=== PATIENT | female | born 1960 | race Caucasian/White ===

== ENCOUNTER → 2018-05-01 | Outpatient (CLI) | payer MEDICARE ==
--- NOTE | 2018-05-07 10:22 | MM ---
Reason for exam: screening (asymptomatic). Last mammogram was performed 2 years and 10 months ago. History: Patient is postmenopausal. Physical Findings: A clinical breast exam by your physician is recommended on an annual basis and results should be correlated with mammographic findings. MG 3D Screening Mammo W/Cad Bilateral CC, MLO, and XCCL view(s) were taken. Prior study comparison: June 18, 2015, mammogram, performed at [facility]. The breast tissue is heterogeneously dense. This may lower the sensitivity of mammography. There is chronic nodularity bilaterally. Extensive bilateral breast calcifications are present. They all seem to have the same course morphology. Calcifications are overall increased from 2015. Magnification views recommended and can be performed of a product support representative cluster on either side. ASSESSMENT: Incomplete: need additional imaging evaluation, BI-RAD 0 RECOMMENDATION: Special view mammogram of both breasts. [facility] will attempt to contact patient to return for supplemental views and ultrasound if indicated. [place]
== END | disposition home or self-care (01) ==
LOC: RADMAMWWP 16:40
PROVIDERS: ATTEND Family Medicine
DX: Z12.31 Encounter for screening mammogram for malignant neoplasm of breast (principal)
CPT/HCPCS: 77063; 77067

== ENCOUNTER → 2018-05-17 | Outpatient (CLI) | payer MEDICARE ==
--- NOTE | 2018-05-18 08:14 | MM ---
Reason for exam: additional evaluation requested from abnormal screening. Last mammogram was performed 1 month ago. History: Patient is postmenopausal. Physical Findings: Nurse did not find any significant physical abnormalities on exam. MG Work Up Mamm w CAD BILAT Bilateral CC with magnification, LM with magnification, and LM view(s) were taken. Prior study comparison: May 01, 2018, bilateral MG 3d screening mammo w/cad. June 18, 2015, mammogram, performed at [facility]. Given the differences in technique the numerous scattered diffuse bilateral calcifications appear similar to 2015 with no suspicious with no suspicious morphologically different group on magnification views. These results were verbally communicated with the patient and result sheet given to the patient on 05/17/18. ASSESSMENT: Benign, BI-RAD 2 RECOMMENDATION: Return to routine screening mammogram schedule for both breasts.
== END | disposition home or self-care (01) ==
LOC: RADMAMWWP 14:36
PROVIDERS: ATTEND Family Medicine
DX: R92.8 Other abnormal and inconclusive findings on diagnostic imaging of breast (principal)
CPT/HCPCS: 77066

== ENCOUNTER → 2018-08-27 | Outpatient (CLI) | payer MEDICARE ==
--- NOTE | 2018-08-27 14:52 | US ---
EXAMINATION TYPE: US venous doppler duplex LE RT DATE OF EXAM: 08/27/2018 2:09 PM COMPARISON: NONE CLINICAL HISTORY: R20.2 paresthesia of skin. Pain and tightness right lower leg for 3 -4 years that i s getting worse SIDE PERFORMED: Right TECHNIQUE: The lower extremity deep venous system is examined utilizing real time linear array sonog fab with graded compression, doppler sonography and color-flow sonography. VESSELS IMAGED: External Iliac Vein (EIV) Common Femoral Vein Deep Femoral Vein Greater Saphenous Vein * Femoral Vein Popliteal Vein Small Saphenous Vein * Proximal Calf Veins (* superficial vessels) Right Leg: No evidence of DVT IMPRESSION: No evidence for DVT at this time.
--- NOTE | 2018-08-29 11:04 | P.ARTDOP ---
Arterial Doppler LOWER EXTREMITY ARTERIAL DOPPLER: DATE OF SERVICE: 08/27/2018 Reason for study: Right leg pain. Doppler waveforms: Multiphasic throughout on the right. Pulse volume recording: Normal configuration on the right. Pressure gradients: None. Ankle-brachial indices: Greater than 1 bilaterally. Toe pressures: [] on the right, [] on the left Impression: Normal study.
== END ==
LOC: RADUSWWP 13:34
PROVIDERS: ATTEND Family Medicine
DX: I70.211 Atherosclerosis of native arteries of extremities with intermittent claudication, right leg (principal); M79.604 Pain in right leg; R20.2 Paresthesia of skin
CPT/HCPCS: 93922

== ENCOUNTER → 2020-06-23 | Outpatient (CLI) | payer MEDICARE ==
--- NOTE | 2020-06-23 12:13 | CT ---
EXAMINATION TYPE: CT chest w con DATE OF EXAM: 06/23/2020 COMPARISON: Prior CT December 30, 2014. HISTORY: abnormal prior CT CT DLP: 121.2 mGycm. Automated Exposure Control for Dose Reduction was Utilized. TECHNIQUE: CT scan of the thorax is performed following with IV Contrast, patient injected with 100 mL of Isovue 300. FINDINGS: LUNGS: Persistent mild to moderate biapical pleural/parenchymal scarring. Background mild underlying emphysematous change redemonstrated. Stable mild anterior bibasilar linear scarring. No new suspiciou s pulmonary nodules or masses. There is no pleural effusion or pneumothorax seen. The tracheobronchi al tree is patent. MEDIASTINUM: There are no greater than 1 cm hilar or mediastinal lymph nodes. No cardiomegaly or pe ricardial effusion is seen. The ascending aorta measures up to 3.1 cm diameter axial image 29. OTHER: Dextroconvex scoliosis centered mid thoracic spine. Some disc space narrowing and vacuum disc phenomenon in the mid thoracic spine. IMPRESSION: Mild emphysematous and other chronic changes without suspicious acute pulmonary process.
== END | disposition home or self-care (01) ==
LOC: RADCTMAIN 10:43
PROVIDERS: ATTEND Internal Medicine Critical Care Medicine
DX: J43.9 Emphysema, unspecified (principal)
CPT/HCPCS: 71260; Q9967

== ENCOUNTER → 2021-10-01 | Outpatient (CLI) | payer MEDICARE ==
[~2021-10-01] MED LIST: SODIUM CHLORIDE 0.9% 50 ML IVPB ONE; SODIUM CHLORIDE 0.9% 500 ML 500 ML in EMPTY BAG 1 BAG IV PRN; SOTROVIMAB (EUA) 500 MG in SODIUM CHLORIDE 0.9% 100 ML IVPB ONE
[2021-10-01 14:46] VITALS: TEMP 97.7
[2021-10-01 14:58] VITALS: BP 138/87; PULSE 89; RESP 16
== END ==
LOC: PROCWHC3 12:59
DX: U07.1 COVID-19 (principal); F17.200 Nicotine dependence, unspecified, uncomplicated
CPT/HCPCS: 96360; Q0247; M0247